=== PATIENT | male | born 1985 | race Caucasian/White ===

== ENCOUNTER 2017-07-14 09:36 | Emergency (ER) | payer OTHER | END 2017-07-14 10:20 | disposition home or self-care (01) | LOC: E/R 09:36 | DX: L73.9 Follicular disorder, unspecified (principal); J02.9 Acute pharyngitis, unspecified | CPT/HCPCS: 99282; Z7502 ==

== ENCOUNTER 2017-12-29 07:55 | Emergency (ER) | payer OTHER | END 2017-12-29 09:18 | disposition home or self-care (01) | LOC: FTE 07:55 | DX: H61.23 Impacted cerumen, bilateral (principal) | CPT/HCPCS: 69209; 99282-25 ==

== ENCOUNTER 2018-10-30 18:29 | Emergency (ER) | payer OTHER | END 2018-10-30 21:47 | disposition home or self-care (01) | LOC: FTE 18:29 | DX: S92.352A Displaced fracture of fifth metatarsal bone, left foot, initial encounter for closed fracture (principal); X50.1XXA Overexertion from prolonged static or awkward postures, initial encounter; Y92.9 Unspecified place or not applicable | CPT/HCPCS: 73630; 73630-LT; 99283-25 ==